=== PATIENT | male | born 1965 | race Asian ===

== ENCOUNTER 2022-01-14 12:18 | Inpatient (IN) | payer OTHER ==
[~2022-01-14] VITALS: Ht 170.2 cm; Wt 54.4 kg
[2022-01-14] MEDS ORDERED: ASPIRIN 81MG TABLET PO ONE (13:00)
[2022-01-14] MEDS ORDERED: MECLIZINE 25MG TABLET PO ONE (13:15)
[2022-01-14] MEDS ORDERED: ACETAMINOPHEN 325MG TABLET PO ONE (13:15)
[2022-01-14] MEDS ORDERED: METOCLOPRAMIDE HCL 10MG/2ML VIAL IV ONE (13:15)
[2022-01-14] MEDS ORDERED: DIPHENHYDRAMINE 50MG/ML VIAL IV ONE (13:15)
[2022-01-14 14:32] LABS: BASOPHILS % 0.7 % (0.0-2.0); EOSINOPHILS % 4.9 % (0.0-5.0); HEMATOCRIT. 43.1 % (42.0-52.0); HEMOGLOBIN. 14.8 g/dL (14.0-18.0); LYMPHOCYTES % 20.9 % (20.0-50.0); MEAN CORPUSCULAR HEMOGLOBIN 32.4 pg (28.0-32.0); MEAN CORPUSCULAR VOLUME 94.3 fL (80.0-94.0); MEAN PLATELET VOLUME 6.9 fl (7.4-10.4); MONOCYTES % 6.5 % (2.0-8.0); PLATELET 241 x1000/uL (130-400); RED BLOOD CELL COUNT 4.57 mill/uL (4.7-6.1); RED CELL DISTRIBUTION WIDTH 12.6 % (11.6-14.6)
[2022-01-14 14:39] LABS: CHLORIDE 102 mEq/L (98-107)
[2022-01-14 14:42] LABS: PARTIAL THROMBOPLASTIN TIME 22.9 sec (23.4-31.0); PROTHROMBIN TIME 10.6 sec (9.6-11.0)
[2022-01-14] MEDS ORDERED: MECLIZINE 25MG TABLET PO PRN (20:00)
[2022-01-14] MEDS ORDERED: MAGNESIUM/ALUMINUM HYDROXIDE/SIMETHICONE 30ML UDC PO PRN (20:00)
[2022-01-14] MEDS ORDERED: HYDROCODONE/ACETAMINOPHEN 5/325MG TABLET PO PRN (20:00)
[2022-01-14] MEDS ORDERED: CLONIDINE 0.1MG TABLET PO PRN (20:00)
[2022-01-14] MEDS ORDERED: GUAIFENESIN 200MG/10ML SUGAR FREE UDC PO PRN (20:00)
[2022-01-14] MEDS ORDERED: ONDANSETRON HCL 4MG/2ML INJ IV PRN (20:00)
[2022-01-14] MEDS ORDERED: ACETAMINOPHEN 325MG TABLET PO PRN ×2 (20:00)
[2022-01-14] MEDS ORDERED: IPRATROPIUM/ALBUTEROL 0.5-3(2.5)MG/3ML NEB NEB PRN (20:00)
[2022-01-14] MEDS ORDERED: NALOXONE HCL 0.4MG/ML VIAL IV PRN (20:15)
[2022-01-14] MEDS: SODIUM CHLORIDE 0.9% 1,000 ML IV SCH (20:18)
[2022-01-14 21:00] VITALS: BP 123/74
[2022-01-14] MEDS ORDERED: ENOXAPARIN 40MG/0.4ML SYR SUBCUT SCH (21:00)
[2022-01-14 22:47] VITALS: BP 123/74
[2022-01-15] VITALS: BP 103/73
[2022-01-15 04:00] VITALS: BP 129/80
[2022-01-15 05:21] LABS: BASOPHILS % 1.2 % (0.0-2.0); EOSINOPHILS % 7.5 % (0.0-5.0); HEMATOCRIT. 42.6 % (42.0-52.0); HEMOGLOBIN. 14.7 g/dL (14.0-18.0); LYMPHOCYTES % 36.6 % (20.0-50.0); MEAN CORPUSCULAR HEMOGLOBIN 32.5 pg (28.0-32.0); MONOCYTES % 8.4 % (2.0-8.0); NEUTROPHILS % 46.3 % (40.0-76.0); PLATELET 244 x1000/uL (130-400); RED BLOOD CELL COUNT 4.53 mill/uL (4.7-6.1); RED CELL DISTRIBUTION WIDTH 12.6 % (11.6-14.6)
[2022-01-15] MEDS: SODIUM CHLORIDE 0.9% 1,000 ML IV SCH (06:09)
[2022-01-15 06:12] LABS: CHLORIDE 107 mEq/L (98-107)
[2022-01-15 06:35] LABS: HDL CHOLESTEROL 55 mg/dL (40-59); LDL CHOLESTEROL 58 mg/dL (5-100); T4 FREE 0.93 ng/dL (0.76-1.46)
[2022-01-15 08:00] VITALS: BP 113/74
[2022-01-15 08:19] LABS: VITAMIN B12 SERUM 507 pg/mL (211-911)
[2022-01-15 12:00] VITALS: BP 128/83
[2022-01-15 16:00] VITALS: BP 122/76
[2022-01-15] MEDS ORDERED: MECL-159 PO (17:17)
[2022-01-15] MEDS ORDERED: LORAZEPAM 0.5MG TABLET PO PRN (18:15)
[2022-01-15] MEDS ORDERED: NALOXONE HCL 0.4MG/ML VIAL IV PRN (18:15)
[2022-01-15 18:33] VITALS: BP 122/76
== END 2022-01-15 19:06 | disposition home or self-care (01) | DRG 111 ==
LOC: ER 13:04 → 6WST 18:46 → EDBEDREQ 18:53 → EDBEDREQTM 18:53 → SUPCPDRO 19:35 → ENRESERV 19:47 → 6WST 22:00
PROVIDERS: ADMIT Internal Medicine; ATTEND Internal Medicine
DX: R42 Dizziness and giddiness (principal); E78.00 Pure hypercholesterolemia, unspecified
CPT/HCPCS: 36415; 70551; 71045; 80048; 80053; 80061; 82607; 82746; 83036; 83880; 84439; 84443; 84484; 85025; 93005; 93306; 99285; J1200; J1650; J2765; J8597